=== PATIENT | male | born 2000 ===

== ENCOUNTER 2023-10-29 19:26 | Emergency (ER) | payer SELFPAY ==
[2023-10-29 19:28] VITALS: BP 129/68; PULSE 73; RESP 15; TEMP 36.6; O2SAT 100; BMI 20.7
[2023-10-29 19:29] VITALS: BP 129/68; PULSE 66; RESP 16; TEMP 36.6; O2SAT 100
== END 2023-10-29 21:11 | disposition left against medical advice (07) ==
LOC: ED 21:15
DX: Z53.21 Procedure and treatment not carried out due to patient leaving prior to being seen by health care provider (principal)
CPT/HCPCS: 93005